=== PATIENT | female | born 1985 | race African-American/Black ===

== ENCOUNTER 2017-01-25 17:56 | Emergency (ER) | payer MEDICAID ==
[~2017-01-25] VITALS: Ht 170.2 cm; Wt 72.0 kg
[2017-01-25 23:11] LABS: BASOPHILS % 0.7 % (0.0-2.0); EOSINOPHILS % 1.8 % (0.0-5.0); HEMATOCRIT. 38.2 % (36.0-48.0); HEMOGLOBIN. 12.8 g/dL (12.0-16.0); LYMPHOCYTES % 44.1 % (20.0-50.0); MEAN CORPUSCULAR HEMOGLOBIN 28.7 pg (28.0-32.0); MEAN CORPUSCULAR VOLUME 86.1 fL (81.0-99.0); MEAN PLATELET VOLUME 7.4 fl (7.4-10.4); MONOCYTES % 11.7 % (2.0-8.0); NEUTROPHILS % 41.7 % (40.0-76.0); PLATELET 290 x1000/uL (130-400); RED BLOOD CELL COUNT 4.44 mill/uL (4.2-5.4); RED CELL DISTRIBUTION WIDTH 13.5 % (11.6-14.6)
[2017-01-25 23:15] LABS: CHLORIDE 107 mEq/L (98-107)
[2017-01-25 23:29] LABS: CARBON DIOXIDE 29 mEq/L (21-32)
[2017-01-26 00:45] VITALS: BP 122/76
== END 2017-01-26 00:45 | disposition home or self-care (01) ==
LOC: ER 17:56
DX: E04.1 Nontoxic single thyroid nodule (principal)
CPT/HCPCS: 36415; 76536; 80048; 84443; 85025; 93005; 99285